=== PATIENT | female | born 1980 | race Two or more races ===

== ENCOUNTER → 2022-04-12 06:39 | Outpatient (CLI) | payer OTHER | END | disposition home or self-care (01) | LOC: LAB 06:39 | DX: E03.9 Hypothyroidism, unspecified (principal); E55.9 Vitamin D deficiency, unspecified; Z13.1 Encounter for screening for diabetes mellitus; E78.5 Hyperlipidemia, unspecified ==

== ENCOUNTER 2022-04-13 07:29 | Outpatient (CLI) | payer OTHER | END 2022-04-13 07:33 | disposition home or self-care (01) | LOC: SONOGRAMA 07:29 | DX: E03.9 Hypothyroidism, unspecified (principal) ==

== ENCOUNTER 2022-05-20 08:14 | Outpatient (CLI) | payer OTHER | END 2022-05-20 10:05 | disposition home or self-care (01) | LOC: SONOGRAMA 08:14 | PROVIDERS: ATTEND Pathology Anatomic Pathology & Clinical Pathology | DX: D34 Benign neoplasm of thyroid gland (principal); E06.3 Autoimmune thyroiditis; E04.2 Nontoxic multinodular goiter ==

== ENCOUNTER 2022-08-27 07:48 | Outpatient (CLI) | payer OTHER | END 2022-08-27 07:54 | disposition home or self-care (01) | LOC: RAD 07:48 | PROVIDERS: ATTEND Physical Medicine & Rehabilitation | DX: M54.2 Cervicalgia (principal); M25.552 Pain in left hip ==